=== PATIENT | male | born 2000 | race Caucasian/White ===

== ENCOUNTER 2019-05-27 14:51 | Emergency (ER) | payer BC ==
[2019-05-27 14:58] VITALS: BP 138/87; PULSE 75; O2SAT 98
--- NOTE | 2019-05-27 15:03 | ERPHSYRPT ---
- History of Present Illness Time Seen by Provider: 05/27/19 15:03 Source: patient Exam Limitations: no limitations Patient Subjective Stated Complaint: pt here for laceration to left upper thigh , no bleeding at present time Triage Nursing Assessment: pt alert, walked in, resp easy, skin w/d/p. 2 /2/ inches x1 inch, Physician History: Is a 18-year-old white male who presents soon after a laceration to his left thigh. The laceration was accidental and was caused by a chainsaw that he was using. Patient's tetanus status is up-to-date. Patient denies significant left thigh pain. Timing/Duration: today Severity: mild Location: extremities (Left anterior thigh) Possible Causes: other (Chainsaw) Associated Symptoms: denies symptoms Allergies/Adverse Reactions: No Known Drug Allergies Allergy (Unverified 05/27/19 14:58) Hx Tetanus, Diphtheria Vaccination/Date Given: Yes Hx Influenza Vaccination/Date Given: Yes Hx Pneumococcal Vaccination/Date Given: No Immunizations Up to Date: Yes - Review of Systems Constitutional: No Symptoms Eyes: No Symptoms Ears, Nose, & Throat: No Symptoms Respiratory: No Symptoms Cardiac: No Symptoms Abdominal/Gastrointestinal: No Symptoms Genitourinary Symptoms: No Symptoms Musculoskeletal: No Symptoms Skin: Other (Laceration to left anterior thigh) Neurological: No Symptoms Psychological: No Symptoms Endocrine: No Symptoms Hematologic/Lymphatic: No Symptoms Immunological/Allergic: No Symptoms All Other Systems: Reviewed and Negative - Past Medical History Pertinent Past Medical History: No Neurological History: No Pertinent History ENT History: No Pertinent History Cardiac History: No Pertinent History Respiratory History: No Pertinent History Endocrine Medical History: No Pertinent History Musculoskeletal History: No Pertinent History GI Medical History: No Pertinent History History: No Pertinent History Psycho-Social History: No Pertinent History Male Reproductive Disorders: No Pertinent History - Past Surgical History Past Surgical History: No Neuro Surgical History: No Pertinent History Cardiac: No Pertinent History Respiratory: No Pertinent History Gastrointestinal: No Pertinent History Genitourinary: No Pertinent History Musculoskeletal: No Pertinent History Male Surgical History: No Pertinent History - Social History Smoking Status: Never smoker Drug Use: none Patient Lives Alone: Yes - Nursing Vital Signs Nursing Vital Signs: Initial Vital Signs Temperature 97 F 05/27/19 14:53 Pulse Rate 75 05/27/19 14:53 Respiratory Rate 18 05/27/19 14:53 Blood Pressure 138/87 05/27/19 14:53 O2 Sat by Pulse Oximetry 98 05/27/19 14:53 Pain Scale Pain Intensity 0 - Physical Exam General Appearance: no apparent distress, alert Eye Exam: PERRL/EOMI, eyes nml inspection Ears, Nose, Throat Exam: normal ENT inspection, moist mucous membranes Neck Exam: normal inspection, non-tender, supple, full range of motion Respiratory Exam: airway intact, No chest tenderness, No respiratory distress Gastrointestinal/Abdomen Exam: No tenderness Rectal Exam: not done Back Exam: normal range of motion, No CVA tenderness, No vertebral tenderness Extremity Exam: lacerations (Laceration to left anterior thigh. There is venous oozing from the skin edge of the laceration site. Laceration site measured approximately 4 cm on its horizontal axis and 2-2 and half centimeters craniocaudal. There is some shredded skin at the skin level. No evidence of foreign body present.) Neurologic Exam: alert, oriented x 3, cooperative, melter caster II-XII nml as tested Skin Exam: laceration (The above under extremity exam) Lymphatic Exam: No adenopathy SpO2 Interpretation: normal SpO2: 98 O2 Delivery: Room Air Procedures - Laceration/Wound Repair Left Anterior Thigh Wound Location: Left, upper leg (Anterior thigh) Wound Length (cm): 4 Wound's Depth, Shape: superficial, stellate Wound Explored: No foreign body present we are able to evaluate the wound in a bloodless field to the base. Hibiclens Prep: Yes Anesthesia: 1% Lidocaine Volume Anesthetic (ccs): 10 Wound Debrided: minimal Wound Repaired With: sutures (2 30 Nylon simple interrupted sutures of), [place] (10) Number of Sutures: 2 (+10 anand) Layer Closure?: No Sterile Dressing Applied?: Yes Progress: 05/27/19 15:44 Patient's left thigh was prepped with Hibiclens and saline solution. The wound was explored to the base and there is no evidence of foreign body. The areas of shredded skin were debrided sharply with scissors. The wound was then cleaned with Hibiclens solution. The area was anesthetized Locally with 1% lidocaine plain. The skin edges were approximated with 10 skin anand and 2 simple interrupted sutures of 3-0 Ethilon the wound was again cleaned and dried nonstick gauze 4 x 4 gauze and a pressure dressing was applied. The patient tolerated the procedure well and there were no complications Ordered Tests: Medication Summary Discontinued Medications Generic Name Dose Route Start Last Admin Trade Name Rubenq PRN Reason Stop Dose Admin Lidocaine HCl Confirm 05/27/19 15:18 Xylocaine 1% Hcl 20 Ml Mdv Administered 05/27/19 15:19 Dose 10 ml .ROUTE .STK-MED ONE - Progress Progress: improved Counseled pt/family regarding: diagnosis, need for follow-up - Departure Departure Disposition: Home Clinical Impression: Laceration Condition: Stable Critical Care Time: No Additional Instructions: Keep pressure dressing in place until Thursday morning. Thursday morning you can remove the dressing and then wash the area with soap and water. You may then apply once daily antibiotic ointment and then reapply dressing daily. And staple removal in 10 to 12 days. Prescriptions: Hydrocodone/APAP 5/325 [[place] 5/325 mg] 1 each PO Q8H PRN PRN #6 tablet MDD 2 PRN Reason: Pain Cephalexin Mh 500 mg [Keflex 500 mg] 500 mg PO TID #21 capsule
[2019-05-27] MEDS ORDERED: XYLOCAINE 1% HCL 20 ML MDV ONE (15:18)
[2019-05-27] MEDS ORDERED: KEFLEX 500 MG PO ONE (15:38)
[2019-05-27] MEDS ORDERED: KEFLEX 500 MG ONE (15:40)
== END 2019-05-27 16:26 | disposition home or self-care (01) ==
LOC: ED 14:51
DX: S71.112A Laceration without foreign body, left thigh, initial encounter (principal); W45.8XXA Other foreign body or object entering through skin, initial encounter; Y93.89 Activity, other specified
CPT/HCPCS: 12002; 99283; A9270-GY

== ENCOUNTER 2019-08-06 16:27 | Emergency (ER) | payer BC ==
[2019-08-06 16:37] VITALS: O2SAT 98
[2019-08-06 16:59] LABS: Absolute Neutrophil Ct (ANC) 2.66 (1.4-6.9); BASOPHIL % 0.6 % (0.0-0.4); Basophil (Absolute #) 0.03 (0-0.4); Eosinophil % 1.7 % (0.00-5.0); Eosinophil (Absolute #) 0.09 (0-0.5); Hematocrit 43.8 % (42-50); Hemoglobin 14.9 gm/dl (12.5-18.0); Lymphocytes % 36.6 % (24.0-44.0); Mean Cell Volume 88.3 fl (78-100); Mean Platelet Volume 11.5 fl (7.5-11.0); Monocyte (Absolute #) 0.51 (0.0-1.3); Monocytes % 9.8 % (0.0-12.0); Neutrophil % 51.3 % (36.0-66.0); Platelet Count 277 K/mm3 (150-450); Red Blood Count 4.96 M/mm3 (4.1-5.6); Red Cell Distribution Width 13.7 % (11.5-14.0); White Blood Count 5.2 K/mm3 (4.0-10.5)
[2019-08-06 17:00] LABS: Appearance CLEAR (CLEAR); Bilirubin NEGATIVE (NEGATIVE); Blood NEGATIVE Ery/ul (0-5); Glucose NEGATIVE (NEGATIVE); Ketones NEGATIVE (NEGATIVE); Leukocyte Esterase NEGATIVE (NEGATIVE); Mucus SLIGHT /HPF (NEGATIVE); Nitrite NEGATIVE (NEGATIVE); Protein,Urine Dip NEGATIVE (Negative); Specific Gravity 1.023 (1.005-1.025); Urobilinogen NEGATIVE mg/dL (0-1)
[2019-08-06 17:10] LABS: ALBUMIN 4.9 g/dL (3.5-5.0); ALKALINE PHOSPHATASE 50 U/L (38-126); ANION GAP 14.1 MEQ/L (5-15); BLOOD UREA NITROGEN 20 mg/dL (9-20); CHLORIDE 103 mmol/L (98-107); Calcium 9.8 mg/dL (8.4-10.2); Carbon Dioxide 28 mmol/L (22-30); Creatinine 1 1.06 mg/dL (0.66-1.25); Glucose 89 mg/dL (74-106); Potassium 4.2 mmol/L (3.5-5.1); SGOT/AST 26 U/L (17-59); SGPT/ALT 13 U/L (0-50); SODIUM 141 mmol/L (137-145); Total Protein 8.4 g/dL (6.3-8.2)
--- NOTE | 2019-08-06 17:56 | ERPHSYRPT ---
- History of Present Illness Time Seen by Provider: 08/06/19 16:40 Patient Subjective Stated Complaint: PT states "I felt a lump on my left testicle a few days ago and when I went to the gym, it was aching pretty bad and it felt like the lump was bigger, it is down now but still aches." Triage Nursing Assessment: Pt presented alert and oriented X 3, skin pwd. Pt ambulates with an upright steady gait, able to speak in clear full sentences. PT in no apparent respiratory distress. Physician History: Pain Left tersticle x 1 week. constant ache. NKI ?increased selling today Timing/Duration: week(s) (1), worse Activites at Onset: none Quality: aching Onset Location: left testicle Pain Radiation: none Severity of Pain-Max: moderate Severity of Pain-Current: moderate Modifying Factors: Improves With: lying down Associated Symptoms: denies symptoms Prior abdominal problems: none Sexual intercourse history: non-contributory Allergies/Adverse Reactions: No Known Drug Allergies Allergy (Verified 08/06/19 16:37) Hx Tetanus, Diphtheria Vaccination/Date Given: Yes Hx Influenza Vaccination/Date Given: Yes Hx Pneumococcal Vaccination/Date Given: No Immunizations Up to Date: Yes Travel Risk - International Travel Have you traveled outside of the country in past 3 weeks: No Have you or anyone close to you been diagnosed with or: No Do your reside in a community with a known COVID-19 case?: Yes If Yes where:: [place] - Coronavirus Screening Has patient experienced Coronavirus symptoms: No - Past Medical History Pertinent Past Medical History: No Neurological History: No Pertinent History ENT History: No Pertinent History Cardiac History: No Pertinent History Respiratory History: No Pertinent History Endocrine Medical History: No Pertinent History Musculoskeletal History: No Pertinent History GI Medical History: No Pertinent History History: No Pertinent History Psycho-Social History: No Pertinent History Male Reproductive Disorders: No Pertinent History - Past Surgical History Past Surgical History: No Neuro Surgical History: No Pertinent History Cardiac: No Pertinent History Respiratory: No Pertinent History Gastrointestinal: No Pertinent History Genitourinary: No Pertinent History Musculoskeletal: No Pertinent History Male Surgical History: No Pertinent History - Social History Smoking Status: Never smoker Exposure to second hand smoke: No Drug Use: none Patient Lives Alone: No - Review of Systems Constitutional: No Fever, No Chills Eyes: No Symptoms Ears, Nose, & Throat: No Symptoms Respiratory: No Cough, No Dyspnea Cardiac: No Chest Pain, No Edema, No Syncope Abdominal/Gastrointestinal: No Abdominal Pain, No Nausea, No Vomiting, No Diarrhea Genitourinary Symptoms: Testicle Pain, No Dysuria Musculoskeletal: No Back Pain, No Neck Pain Skin: No Rash Neurological: No Dizziness, No Focal Weakness, No Sensory Changes Psychological: No Symptoms Endocrine: No Symptoms All Other Systems: Reviewed and Negative - Nursing Vital Signs Nursing Vital Signs: Initial Vital Signs Temperature 98.2 F 08/06/19 16:32 Pulse Rate 62 08/06/19 16:32 Respiratory Rate 18 08/06/19 16:32 Blood Pressure 151/78 08/06/19 16:32 O2 Sat by Pulse Oximetry 98 08/06/19 16:32 Pain Scale Pain Intensity 6 - Physical Exam General Appearance: mild distress, alert Eye Exam: PERRL/EOMI Ears, Nose, Throat Exam: pharynx normal, moist mucous membranes Neck Exam: normal inspection, supple Respiratory Exam: normal breath sounds, lungs clear Cardiovascular Exam: regular rate/rhythm, No edema Gastrointestinal/Abdomen Exam: soft, No tenderness Male Genital Exam: no hernia, epididymal tenderness, scrotum tenderness (L), testicular tenderness (L) (slight), No hydrocele, No inguinal tenderness Back Exam: normal inspection, No CVA tenderness Extremity Exam: normal inspection, normal range of motion, No pedal edema Neurologic Exam: alert, oriented x 3, cooperative, sensation nml, No motor deficits Skin Exam: normal color, warm, dry, No rash SpO2: 98 - Course Nursing assessment & vital signs reviewed: Yes - Radiology Ultrasound Exam Scrotal Ultrasound: No Torsion/Nml Flow Ordered Tests: Active Orders 24 hr Category Date Time Status TESTICLE [US] Stat Exams 08/06/19 16:43 Taken CBC W DIFF Stat Lab 08/06/19 04:50 Completed CMP Stat Lab 08/06/19 04:50 Completed UA W/RFX UR CULTURE Stat Lab 08/06/19 04:50 Completed Lab/Rad Data: Laboratory Result Diagrams 08/06/19 04:50 08/06/19 04:50 Laboratory Results 08/06/19 08/06/19 08/06/19 Range/Units 04:50 04:50 04:50 WBC 5.2 (4.0-10.5) K/mm3 RBC 4.96 (4.1-5.6) M/mm3 Hgb 14.9 (12.5-18.0) gm/dl Hct 43.8 (42-50) % MCV 88.3 (78-100) fl MCH 30.0 (26-32) pg MCHC 34.0 (32-36) g/dl RDW 13.7 (11.5-14.0) % Plt Count 277 (150-450) K/mm3 MPV 11.5 H (7.5-11.0) fl Gran % 51.3 (36.0-66.0) % Eos # (Auto) 0.09 (0-0.5) Absolute Lymphs (auto) 1.90 (1.0-4.6) Absolute Monos (auto) 0.51 (0.0-1.3) Lymphocytes % 36.6 (24.0-44.0) % Monocytes % 9.8 (0.0-12.0) % Eosinophils % 1.7 (0.00-5.0) % Basophils % 0.6 (0.0-0.4) % Absolute Granulocytes 2.66 (1.4-6.9) Basophils # 0.03 (0-0.4) Sodium 141 (137-145) mmol/L Potassium 4.2 (3.5-5.1) mmol/L Chloride 103 (98-107) mmol/L Carbon Dioxide 28 (22-30) mmol/L Anion Gap 14.1 (5-15) MEQ/L BUN 20 (9-20) mg/dL Creatinine 1.06 (0.66-1.25) mg/dL Estimated GFR > 60.0 ML/MIN Glucose 89 (74-106) mg/dL Calcium 9.8 (8.4-10.2) mg/dL Total Bilirubin 0.40 (0.2-1.3) mg/dL AST 26 (17-59) U/L ALT 13 (0-50) U/L Alkaline Phosphatase 50 (38-126) U/L Serum Total Protein 8.4 H (6.3-8.2) g/dL Albumin 4.9 (3.5-5.0) g/dL Urine Color YELLOW (YELLOW) Urine Appearance CLEAR (CLEAR) Urine pH 5.0 (5-6) Ur Specific [place] 1.023 (1.005-1.025) Urine Protein NEGATIVE (Negative) Urine Ketones NEGATIVE (NEGATIVE) Urine Blood NEGATIVE (0-5) Rafy/ul Urine Nitrite NEGATIVE (NEGATIVE) Urine Bilirubin NEGATIVE (NEGATIVE) Urine Urobilinogen NEGATIVE (0-1) mg/dL Ur Leukocyte Esterase NEGATIVE (NEGATIVE) Urine WBC (Auto) NONE (0-5) /HPF Urine RBC (Auto) NONE (0-2) /HPF U Epithel Cells (Auto) NONE (FEW) /HPF Urine Bacteria (Auto) NONE (NEGATIVE) /HPF Urine Mucus (Auto) SLIGHT (NEGATIVE) /HPF Urine Culture Reflexed NO (NO) Urine Glucose NEGATIVE (NEGATIVE) mg/dL - Progress Progress: unchanged - Departure Departure Disposition: Home Clinical Impression: Epididymitis, left Condition: Stable Critical Care Time: No Referrals: CHICO STINSON [Primary Care Provider] - Instructions: Epididymitis (DC) Prescriptions: Doxycycline Hyclate 100 mg [Vibramycin 100 MG] 100 mg PO BID 10 Days #20 tab Indomethacin 50 mg PO TID 10 Days #30 capsule
[2019-08-06 18:13] VITALS: BP 120/81; PULSE 59
--- NOTE | 2019-08-06 19:42 | XRAY ---
Indication: Left testicle pain/swelling. Two-dimensional testicular sonogram performed. Comparison: None Both testicles are homogeneous in echogenicity with normal color Doppler flow. Right testicle measures 3.8 x 2.1 x 3.2 cm and the left measures 4.6 x 2.5 x 4.2 cm. Left and right epididymis sonographically unremarkable. There are bilateral varicoceles accentuated with Valsalva maneuvering. Also small nonspecific bilateral scrotal hydrocele, slightly loculated on the right. Multiples cinematic images demonstrates small hernia with herniated bowel loop. It Software Developer informs me this is midline. No abnormal bowel dilatation or evidence for incarceration. Impression: 1. Bilateral scrotal varicoceles with hydroceles as detailed. 2. Incidental midline hernia. Correlate clinically. Comment: Preliminary report was given.
== END 2019-08-06 18:20 | disposition home or self-care (01) ==
LOC: ED 16:27
DX: N45.1 Epididymitis (principal)
CPT/HCPCS: 36415; 76870; 80053; 81001; 85025; 99283